=== PATIENT | male | born 1980 | race Caucasian/White ===

== ENCOUNTER 2017-10-30 09:35 | Emergency (ER) | payer SELFPAY ==
[2017-10-30] MEDS ORDERED: IV NORMAL SALINE 1,000ML 1,000 ML IV SCH (09:51)
[2017-10-30] MEDS ORDERED: CONTRAST GIVEN MC PRN (10:15)
[2017-10-30] MEDS ORDERED: PROCHLORPERAZINE 10 MG/2 ML VIAL. IV ONE (10:15)
[2017-10-30] MEDS ORDERED: IOHEXOL 300 MG/ML 75 ML VIAL. IV ONE (10:30)
[2017-10-30 10:35] LABS: BASO % 0 % (0-3); EOS % 0 % (0-3); HEMOGLOBIN 16.1 g/dL (13.0-17.5); LYMPH # 1.9 x10^3/uL (1.0-4.8); LYMPH % 19 % (24-48); MEAN CORPUSCULAR HEMOGLOBIN 31 pg (25-35); MEAN CORPUSCULAR HGB CONC 34 g/dL (31-37); MEAN CORPUSCULAR VOLUME 90 fL (79-100); MONO # 0.4 x10^3/uL (0.0-1.1); MONO % 4 % (0-9); NEUT # 7.7 x10^3uL (1.8-7.7); NEUT % 76 % (31-73); PLATELET COUNT 308 x10^3/uL (140-400); RED CELL DISTRIBUTION WIDTH 13.3 % (11.5-14.5); WHITE BLOOD COUNT 10.1 x10^3/uL (4.0-11.0)
[2017-10-30 10:49] LABS: ALBUMIN 3.9 g/dL (3.4-5.0); ALBUMIN/GLOBULIN RATIO 1.1 (1.0-1.7); CREATININE 1.1 mg/dL (0.7-1.3); GFR 76.2; POTASSIUM 4.1 mmol/L (3.5-5.1); TOTAL PROTEIN 7.6 g/dL (6.4-8.2)
--- NOTE | 2017-10-30 10:54 | PHYS DOC ---
Adult General Chief Complaint Chief Complaint: ABDOMINAL PAIN HPI HPI 37-year-old male presents with abdominal pain. The patient came immediately from the [place] emergency room. Patient was there for abdominal pain and "seizures" . Patient is not complaining of seizure here. He is complaining of severe abdominal pain. He has a history of diabetes. He told me he has not taken his insulin in 2 days, "because I forgot". He is having retching but no emesis. He is unsure about fever or chills. When asked why he doesn't take his insulin regularly, he says I don't know. As the patient just came from another emergency room, I contacted that ER. They noted that he has high blood sugar and tested positive for marijuana. 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 He was diagnosed with cannabinoid hyperemesis, and was angry about the diagnosis of left. Review of Systems Review of Systems Constitutional: Denies fever or chills [] Eyes: Denies change in visual acuity, redness, or eye pain [] HENT: Denies nasal congestion or sore throat [] Respiratory: Denies cough or shortness of breath [] Cardiovascular: No additional information not addressed in HPI [] GI: Abdominal pain, vomiting[] : Denies dysuria or hematuria [] Musculoskeletal: Denies back pain or joint pain [] Integument: Denies rash or skin lesions [] Neurologic: Denies headache, focal weakness or sensory changes [] Endocrine: Denies polyuria or polydipsia [] All other systems were reviewed and found to be within normal limits, except as documented in this note. Current Medications Current Medications Current Medications Medications (Trade) Dose Ordered Sig/Manasa Start Time Stop Time Status Last Admin Dose Admin Info (Do NOT chart on this entry -- for MONITORING) 1 each PRN DAILY PRN 10/30/17 10:15 11/01/17 10:14 Iohexol (Omnipaque 300 Mg/ml) 75 ml 1X ONCE 10/30/17 10:30 10/30/17 10:31 DC 10/30/17 10:37 75 ML Prochlorperazine Edisylate (Compazine) 5 mg 1X ONCE 10/30/17 10:15 10/30/17 10:16 DC 5/28/18 10:22 5 MG Sodium Chloride 1,000 ml @ 1,000 mls/hr Q1H 10/30/17 09:51 10/30/17 10:50 10/30/17 10:22 1,000 MLS/HR Allergies Allergies Allergies Coded Allergies Type Severity Reaction Last Updated Verified No Known Drug Allergies 10/30/17 No Physical Exam Physical Exam Constitutional: Well developed, well nourished, no acute distress, non-toxic appearance. [] HENT: Normocephalic, atraumatic, bilateral external ears normal, oropharynx moist, no oral exudates, nose normal. [] Eyes: PERRLA, EOMI, conjunctiva normal, no discharge. [] Neck: Normal range of motion, no tenderness, supple, no stridor. [] Cardiovascular:Heart rate regular rhythm, no murmur [] Lungs & Thorax: Bilateral breath sounds clear to auscultation [] Abdomen: Bowel sounds normal, soft, diffuse tenderness[] Skin: Warm, dry, no erythema, no rash. [] Back: No tenderness, no CVA tenderness. [] Extremities: No tenderness, no cyanosis, no clubbing, ROM intact, no edema. [] Neurologic: Alert and oriented X 3, normal motor function, normal sensory function, no focal deficits noted. Has had a couple of episodes returns on his side and slowly jerks. He is still able to follow directions during these episodes. He has no loss of bowel or bladder. He has no post ictal state afterwards. He is frequently having forced dry heaves despite medication as well as complaining of pain. [] Psychologic: Anxious, dramatic, not very cooperative[] Current Patient Data Lab Results Laboratory Tests Test 10/30/17 10:13 White Blood Count 10.1 x10^3/uL (4.0-11.0) Red Blood Count 5.20 x10^6/uL (4.30-5.70) Hemoglobin 16.1 g/dL (13.0-17.5) Hematocrit 47.0 % (39.0-53.0) Mean Corpuscular Volume 90 fL (79-100) Mean Corpuscular Hemoglobin 31 pg (25-35) Mean Corpuscular Hemoglobin Concent 34 g/dL (31-37) Red Cell Distribution Width 13.3 % (11.5-14.5) Platelet Count 308 x10^3/uL (140-400) Neutrophils (%) (Auto) 76 % (31-73) H Lymphocytes (%) (Auto) 19 % (24-48) L Monocytes (%) (Auto) 4 % (0-9) Eosinophils (%) (Auto) 0 % (0-3) Basophils (%) (Auto) 0 % (0-3) Neutrophils # (Auto) 7.7 x10^3uL (1.8-7.7) Lymphocytes # (Auto) 1.9 x10^3/uL (1.0-4.8) Monocytes # (Auto) 0.4 x10^3/uL (0.0-1.1) Eosinophils # (Auto) 0.0 x10^3/uL (0.0-0.7) Basophils # (Auto) 0.0 x10^3/uL (0.0-0.2) Acetone Level Neg (NEG) EKG EKG [] Radiology/Procedures Radiology/Procedures Examination: CT of the abdomen pelvis with IV contrast HISTORY: History of abdominal pain COMPARISON: None available TECHNIQUE: Axial CT images of the abdomen pelvis performed with IV contrast. Coronal and sagittal reformats are performed Exposure: One or more of the following individualized dose reduction techniques were utilized for this examination: 1. Automated exposure control 2. Adjustment of the mA and/or kV according to patient size 3. Use of iterative reconstruction technique FINDINGS: The visualized bibasilar lungs are clear. There is mild diffuse decreased attenuation noted throughout the liver likely hepatic steatosis. The visualized spleen, adrenals grossly appears unremarkable. Cholecystectomy clips identified. Stomach is mildly distended. The visualized pancreas grossly appears unremarkable. The small bowel is nondilated. There is mild questionable thickening of the wall of the ascending colon, transverse colon, descending colon.The urinary bladder is mildly distended. The bilateral kidneys enhance symmetrically. The caliber of the aorta grossly appears unremarkable. No evidence of lytic bony destructive lesion. IMPRESSION: 1. Mild questionable wall thickening of the colon probably due to nondistention or less likely colitis. Otherwise no acute intra-abdominal findings. 2. Hepatic steatosis. Electronically signed by: Christo Gomez MD (10/30/2017 11:15 AM) [facility][] Course & Med Decision Making Course & Med Decision Making Pertinent Labs and Imaging studies reviewed. (See chart for details) Patient's labs are significant for blood sugar 370, anion gap was 16, acetone negative, elevated liver enzymes. We have given the patient a liter fluid and recheck his blood sugar. He has to take his insulin. I stressed this to the patient. His CT is essentially negative. There is some mention of mild wall thickening of the colon though it seems unlikely to be infectious. With the patient's abdominal pain is due to his positive UDS. It was positive for opiates and marijuana. He uses a lot of marijuana and it is likely causing his abdominal discomfort and vomiting. We will give him 10 units of lispro prior to discharge for his blood sugar. Repeat blood sugar was 314 prior to the insulin [] Dragon Disclaimer Dragon Disclaimer This electronic medical record was generated, in whole or in part, using a voice recognition dictation system. NORBERT FRANKLIN DO October 30, 2017 10:53
[2017-10-30 11:14] LABS: BACTERIA,URINE 0 /HPF (0-FEW); BILIRUBIN,URINE NEG (NEG); CLARITY,URINE CLEAR; COLOR,URINE AMBER; GLUCOSE,URINE 500 mg/dL (NEG); NITRITE,URINE NEG (NEG); RBC,URINE 0 /HPF (0-2); SQUAMOUS EPITHELIAL CELL,UR OCC /LPF; UROBILINOGEN,URINE 0.2 mg/dL (0.2 mg/dL); WBC,URINE 0 /HPF (0-4)
[2017-10-30 11:16] LABS: BARBITURATES NEG (NEG); BENZODIAZEPINES NEG (NEG); CANNABINOIDS POS (NEG); COCAINE NEG (NEG); METHADONE NEG (NEG); OPIATES POS (NEG); PHENCYCLIDINE NEG (NEG)
--- NOTE | 2017-10-30 11:18 | RAD ---
Examination: CT of the abdomen pelvis with IV contrast HISTORY: History of abdominal pain COMPARISON: None available TECHNIQUE: Axial CT images of the abdomen pelvis performed with IV contrast. Coronal and sagittal reformats are performed Exposure: One or more of the following individualized dose reduction techniques were utilized for this examination: 1. Automated exposure control 2. Adjustment of the mA and/or kV according to patient size 3. Use of iterative reconstruction technique FINDINGS: The visualized bibasilar lungs are clear. There is mild diffuse decreased attenuation noted throughout the liver likely hepatic steatosis. The visualized spleen, adrenals grossly appears unremarkable. Cholecystectomy clips identified. Stomach is mildly distended. The visualized pancreas grossly appears unremarkable. The small bowel is nondilated. There is mild questionable thickening of the wall of the ascending colon, transverse colon, descending colon.The urinary bladder is mildly distended. The bilateral kidneys enhance symmetrically. The caliber of the aorta grossly appears unremarkable. No evidence of lytic bony destructive lesion. IMPRESSION: 1. Mild questionable wall thickening of the colon probably due to nondistention or less likely colitis. Otherwise no acute intra-abdominal findings. 2. Hepatic steatosis. Electronically signed by: Christo Gomez MD (10/30/2017 11:15 AM) [facility]
[2017-10-30 11:20] LABS: AMPHETAMINE/METHAMPHETAMINE NEG (NEG)
[2017-10-30] MEDS ORDERED: ONDA8TAB12 PO (11:47)
[2017-10-30] MEDS ORDERED: INSULIN LISPRO 300 UNITS/3 ML INSULN.PEN. SQ ONE (11:50)
[2017-10-30] MEDS ORDERED: INSU100I17 SQ (12:04)
[2017-10-30] MEDS ORDERED: INSU100I13 SQ (12:05)
[2017-10-30 12:09] VITALS: BP 147/84
[2017-10-30] MEDS ORDERED: INSULIN LISPRO 300 UNITS/3 ML INSULN.PEN. SQ SCH (16:30)
== END 2017-10-30 12:09 | disposition home or self-care (01) ==
LOC: ER 09:35
DX: R10.84 Generalized abdominal pain (principal); R11.10 Vomiting, unspecified; F11.10 Opioid abuse, uncomplicated; F12.10 Cannabis abuse, uncomplicated; E11.9 Type 2 diabetes mellitus without complications
CPT/HCPCS: 36415; 74177; 80053; 80307; 81001; 82010; 82947; 83690; 85025; 96361; 96372; 96374; 99285; J0780; Q9967; G0479; J7030